=== PATIENT | female | born 1985 | race Native Hawaiian/Other Pacific Islander ===

== ENCOUNTER 2021-03-11 19:45 | Emergency (ER) | payer OTHER ==
[~2021-03-11] VITALS: Ht 180.3 cm; Wt 102.1 kg
[2021-03-11 20:20] VITALS: BP 117/80; TEMP 98.3
[2021-03-11 21:01] LABS: PLATELET COUNT 204 K/uL (152-353)
[2021-03-11 21:09] LABS: POTASSIUM 3.8 mmol/L (3.6-5.2)
== END 2021-03-11 22:14 | disposition home or self-care (01) ==
LOC: ED 19:45
PROVIDERS: Family Medicine
DX: K58.9 Irritable bowel syndrome, unspecified (principal)
CPT/HCPCS: 36415; 80053; 81000; 81025; 85027; 96374; 99284; J3490